=== PATIENT | male | born 1960 | race African-American/Black ===

== ENCOUNTER 2016-03-28 09:55 | Outpatient (CLI) | payer MEDICARE | END 2016-03-28 09:56 | LOC: LAB 09:55 | PROVIDERS: ATTEND Internal Medicine Cardiovascular Disease | DX: I63.9 Cerebral infarction, unspecified (principal); Z79.01 Long term (current) use of anticoagulants | CPT/HCPCS: 36415; 85610 ==

== ENCOUNTER 2016-05-02 09:24 | Outpatient (CLI) | payer MEDICARE | END 2016-05-02 09:25 | LOC: LAB 09:24 | PROVIDERS: ATTEND Internal Medicine Cardiovascular Disease | DX: Z51.81 Encounter for therapeutic drug level monitoring (principal); I63.9 Cerebral infarction, unspecified; Z79.01 Long term (current) use of anticoagulants | CPT/HCPCS: 36415; 85610 ==

== ENCOUNTER 2016-06-06 08:16 | Outpatient (CLI) | payer MEDICARE | END 2016-06-06 08:17 | LOC: LAB 08:16 | PROVIDERS: ATTEND Internal Medicine Cardiovascular Disease | DX: Z51.81 Encounter for therapeutic drug level monitoring (principal); Z79.01 Long term (current) use of anticoagulants; I63.9 Cerebral infarction, unspecified | CPT/HCPCS: 36415; 85610 ==

== ENCOUNTER 2016-07-11 09:36 | Outpatient (CLI) | payer MEDICARE | END 2016-07-11 09:37 | LOC: LAB 09:36 | PROVIDERS: ATTEND Internal Medicine Cardiovascular Disease | DX: Z51.81 Encounter for therapeutic drug level monitoring (principal); Z79.01 Long term (current) use of anticoagulants; I63.9 Cerebral infarction, unspecified | CPT/HCPCS: 36415; 85610 ==

== ENCOUNTER 2016-08-01 07:31 | Outpatient (CLI) | payer MEDICARE | END 2016-08-01 07:32 | LOC: LAB 07:31 | PROVIDERS: ATTEND Internal Medicine Cardiovascular Disease | DX: I63.9 Cerebral infarction, unspecified (principal); Z79.01 Long term (current) use of anticoagulants | CPT/HCPCS: 36415; 85610 ==

== ENCOUNTER 2016-09-05 09:17 | Outpatient (CLI) | payer MEDICARE | END 2016-09-05 13:07 | LOC: LAB 09:17 | PROVIDERS: ATTEND Internal Medicine Cardiovascular Disease | DX: I63.9 Cerebral infarction, unspecified (principal) | CPT/HCPCS: 36415; 85610 ==

== ENCOUNTER 2016-10-10 07:52 | Outpatient (CLI) | payer MEDICARE | END 2016-10-10 08:00 | LOC: LAB 07:52 | PROVIDERS: ATTEND Internal Medicine Cardiovascular Disease | DX: I63.9 Cerebral infarction, unspecified (principal) | CPT/HCPCS: 36415; 85610 ==

== ENCOUNTER 2016-10-31 07:57 | Outpatient (CLI) | payer MEDICARE | END 2016-10-31 09:00 | LOC: LAB 07:57 | PROVIDERS: ATTEND Internal Medicine Cardiovascular Disease | DX: I63.9 Cerebral infarction, unspecified (principal) | CPT/HCPCS: 36415; 85610 ==

== ENCOUNTER 2016-11-16 07:47 | Outpatient (CLI) | payer MEDICARE, OTHER | END 2016-11-16 07:50 | LOC: LAB 07:47 | PROVIDERS: ATTEND Internal Medicine Cardiovascular Disease | DX: I63.9 Cerebral infarction, unspecified (principal) | CPT/HCPCS: 36415; 85610 ==

== ENCOUNTER 2016-11-24 08:04 | Outpatient (CLI) | payer MEDICARE, OTHER | END 2016-11-24 08:05 | LOC: LAB 08:04 | PROVIDERS: ATTEND Internal Medicine Cardiovascular Disease | DX: I63.8 Other cerebral infarction (principal) | CPT/HCPCS: 36415; 85610 ==

== ENCOUNTER 2016-12-22 08:11 | Outpatient (CLI) | payer MEDICARE, OTHER | END 2016-12-22 08:12 | LOC: LAB 08:11 | PROVIDERS: ATTEND Internal Medicine Cardiovascular Disease | DX: I63.9 Cerebral infarction, unspecified (principal) | CPT/HCPCS: 36415; 85610 ==

== ENCOUNTER 2017-02-02 09:59 | Outpatient (CLI) | payer MEDICARE, OTHER | END 2017-02-02 11:27 | LOC: LAB 09:59 | PROVIDERS: ATTEND Internal Medicine Cardiovascular Disease | DX: I63.9 Cerebral infarction, unspecified (principal) | CPT/HCPCS: 36415; 85610 ==

== ENCOUNTER 2017-02-16 07:40 | Outpatient (CLI) | payer MEDICARE | END 2017-02-16 07:42 | LOC: LAB 07:40 | PROVIDERS: ATTEND Internal Medicine Cardiovascular Disease | DX: I63.9 Cerebral infarction, unspecified (principal) | CPT/HCPCS: 36415; 85610 ==

== ENCOUNTER 2017-02-20 10:33 | Outpatient (CLI) | payer MEDICARE, OTHER ==
[2017-02-20 10:52] LABS: APPEARANCE,URINE Clear (CLEAR); COLOR,URINE Yellow (YELLOW); OCCULT BLOOD,URINE 1+ (NEGATIVE); PH URINE 5.5 (5.0 - 8.0); UROBILINOGEN URINE 0.2 Eu (0.2-1.0)
[2017-02-20 10:58] LABS: AMORPHOUS SEDIMENT,UR FEW (NEGATIVE)
[2017-02-20 11:30] LABS: eGFR (African) > 60; eGFR (Non-African) > 60
== END 2017-02-20 10:34 ==
LOC: LAB 10:33
PROVIDERS: ATTEND Family Medicine
DX: E11.9 Type 2 diabetes mellitus without complications (principal); R10.2 Pelvic and perineal pain
CPT/HCPCS: 36415; 80053; 80061; 81002; 83036

== ENCOUNTER 2017-02-27 10:35 | Outpatient (CLI) | payer MEDICARE, OTHER ==
--- NOTE | 2017-02-27 13:31 | Diagnostic Imaging Report ---
SALOME CISSE [facility] [address] [facility] [address] 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 History: Left sided pelvic discomfort Comparison exams: None available for direct review Technique: CT pelvis without contrast - unable to obtain IV access. Findings: No evidence for pelvic sidewall mass or inflammatory process. Visualized bowel without abnormal dilation. Stool within the large bowel limiting sensitivity. Few sigmoid diverticula. Hyperdensity involving the posterior margin of the bladder. Osseous cortical margins appear to be intact. Lower lumbar degenerative changes. Mild hip acetabular spurring. No evidence for inguinal hernia or other soft tissue abnormality. Impression: Region of hyper intensity involving the posterior margin of the bladder: not fully evaluated on a noncontrast examination. Recommend dedicated imaging to further evaluate. Sigmoid diverticulosis. No evidence for acute diverticulitis. No acute inflammatory process. Osseous degenerative changes. No evidence for fracture. Electronically signed on Feb 27, 2017 11:41:04 AM FRUIT GRADING SUPERVISOR by: Mario ROUSE
== END 2017-02-27 10:45 ==
LOC: RAD 10:35
PROVIDERS: ATTEND Family Medicine
DX: R10.2 Pelvic and perineal pain (principal)
CPT/HCPCS: 72192

== ENCOUNTER 2017-03-23 07:13 | Outpatient (CLI) | payer MEDICARE, OTHER | END 2017-03-23 07:14 | LOC: LAB 07:13 | PROVIDERS: ATTEND Internal Medicine Cardiovascular Disease | DX: Z79.01 Long term (current) use of anticoagulants (principal); I63.9 Cerebral infarction, unspecified | CPT/HCPCS: 36415; 85610 ==

== ENCOUNTER 2017-03-29 10:56 | Outpatient (CLI) | payer MEDICARE, OTHER | END 2017-03-29 10:58 | LOC: POD 10:56 | PROVIDERS: ATTEND Podiatrist Public Medicine | DX: L84 Corns and callosities (principal); M79.672 Pain in left foot; M76.71 Peroneal tendinitis, right leg; E11.9 Type 2 diabetes mellitus without complications; B35.1 Tinea unguium; L60.0 Ingrowing nail | CPT/HCPCS: 11721; G0463 ==

== ENCOUNTER 2017-03-30 07:20 | Outpatient (CLI) | payer MEDICARE, OTHER | END 2017-03-30 07:21 | LOC: LAB 07:20 | PROVIDERS: ATTEND Internal Medicine Cardiovascular Disease | DX: Z51.81 Encounter for therapeutic drug level monitoring (principal); I63.9 Cerebral infarction, unspecified | CPT/HCPCS: 36415; 85610 ==

== ENCOUNTER 2017-04-17 07:12 | Outpatient (CLI) | payer MEDICARE, OTHER | END 2017-04-17 07:14 | LOC: LAB 07:12 | PROVIDERS: ATTEND Internal Medicine Cardiovascular Disease | DX: I63.9 Cerebral infarction, unspecified (principal); Z79.899 Other long term (current) drug therapy | CPT/HCPCS: 36415; 85610 ==

== ENCOUNTER 2017-05-01 12:28 | Outpatient (CLI) | payer MEDICARE, OTHER | END 2017-05-01 12:30 | LOC: LAB 12:28 | PROVIDERS: ATTEND Internal Medicine Cardiovascular Disease | DX: I63.9 Cerebral infarction, unspecified (principal); Z79.01 Long term (current) use of anticoagulants | CPT/HCPCS: 36415; 85610 ==

== ENCOUNTER 2017-05-29 07:21 | Outpatient (CLI) | payer MEDICARE, OTHER | END 2017-05-29 07:30 | LOC: LAB 07:21 | PROVIDERS: ATTEND Internal Medicine Cardiovascular Disease | DX: I63.9 Cerebral infarction, unspecified (principal); Z79.899 Other long term (current) drug therapy | CPT/HCPCS: 36415; 85610 ==

== ENCOUNTER 2017-05-31 10:48 | Outpatient (CLI) | payer MEDICARE, OTHER | END 2017-05-31 11:00 | LOC: POD 10:48 | PROVIDERS: ATTEND Podiatrist Public Medicine | DX: B35.1 Tinea unguium (principal); E11.9 Type 2 diabetes mellitus without complications; L84 Corns and callosities; L60.0 Ingrowing nail; M79.671 Pain in right foot; M79.672 Pain in left foot | CPT/HCPCS: 11721; G0463 ==

== ENCOUNTER 2017-07-03 07:41 | Outpatient (CLI) | payer MEDICARE, OTHER | END 2017-07-03 07:42 | LOC: LAB 07:41 | PROVIDERS: ATTEND Internal Medicine Cardiovascular Disease | DX: I63.9 Cerebral infarction, unspecified (principal); I51.3 Intracardiac thrombosis, not elsewhere classified; Z79.899 Other long term (current) drug therapy | CPT/HCPCS: 36415; 85610 ==

== ENCOUNTER 2017-07-26 15:58 | Outpatient (CLI) | payer MEDICARE, OTHER | END 2017-07-26 16:00 | LOC: LAB 15:58 | PROVIDERS: ATTEND Family Medicine | DX: E11.9 Type 2 diabetes mellitus without complications (principal) | CPT/HCPCS: 36415; 83036 ==

== ENCOUNTER 2017-08-07 07:17 | Outpatient (CLI) | payer MEDICARE, OTHER | END 2017-08-07 12:16 | LOC: LAB 07:17 | PROVIDERS: ATTEND Internal Medicine Cardiovascular Disease | DX: I42.0 Dilated cardiomyopathy (principal); Z86.73 Personal history of transient ischemic attack (TIA), and cerebral infarction without residual deficits; Z79.899 Other long term (current) drug therapy | CPT/HCPCS: 36415; 85610 ==

== ENCOUNTER 2017-09-11 08:22 | Outpatient (CLI) | payer MEDICARE, OTHER | END 2017-09-11 08:23 | LOC: LAB 08:22 | PROVIDERS: ATTEND Internal Medicine Cardiovascular Disease | DX: I42.0 Dilated cardiomyopathy (principal); Z86.79 Personal history of other diseases of the circulatory system; Z79.899 Other long term (current) drug therapy | CPT/HCPCS: 36415; 85610 ==

== ENCOUNTER 2017-10-04 07:08 | Outpatient (CLI) | payer MEDICARE, OTHER | END 2017-10-04 13:35 | LOC: LAB 07:08 | PROVIDERS: ATTEND Internal Medicine Cardiovascular Disease | DX: I42.0 Dilated cardiomyopathy (principal); Z86.73 Personal history of transient ischemic attack (TIA), and cerebral infarction without residual deficits; Z79.899 Other long term (current) drug therapy | CPT/HCPCS: 36415; 85610 ==

== ENCOUNTER 2017-10-24 14:33 | Outpatient (CLI) | payer MEDICARE | END 2017-10-24 14:35 | LOC: LAB 14:33 | PROVIDERS: ATTEND Internal Medicine Cardiovascular Disease | DX: I42.0 Dilated cardiomyopathy (principal); Z86.73 Personal history of transient ischemic attack (TIA), and cerebral infarction without residual deficits; Z79.899 Other long term (current) drug therapy | CPT/HCPCS: 36415; 85610 ==

== ENCOUNTER 2017-10-25 09:33 | Outpatient (CLI) | payer MEDICARE | END 2017-10-25 09:34 | LOC: POD 09:33 | PROVIDERS: ATTEND Podiatrist Public Medicine | DX: B35.1 Tinea unguium (principal); E11.9 Type 2 diabetes mellitus without complications; L84 Corns and callosities; L60.0 Ingrowing nail; M79.671 Pain in right foot; M79.672 Pain in left foot | CPT/HCPCS: 11721; G0463 ==

== ENCOUNTER 2017-11-22 07:14 | Outpatient (CLI) | payer MEDICARE | END 2017-11-22 07:15 | LOC: LAB 07:14 | PROVIDERS: ATTEND Internal Medicine Cardiovascular Disease | DX: I42.0 Dilated cardiomyopathy (principal); Z86.73 Personal history of transient ischemic attack (TIA), and cerebral infarction without residual deficits; Z79.899 Other long term (current) drug therapy | CPT/HCPCS: 36415; 85610 ==

== ENCOUNTER 2017-12-14 07:19 | Outpatient (CLI) | payer MEDICARE | END 2017-12-14 07:20 | LOC: LAB 07:19 | PROVIDERS: ATTEND Internal Medicine Cardiovascular Disease | DX: I42.0 Dilated cardiomyopathy (principal); Z86.73 Personal history of transient ischemic attack (TIA), and cerebral infarction without residual deficits; Z79.899 Other long term (current) drug therapy | CPT/HCPCS: 36415; 85610 ==

== ENCOUNTER 2018-01-18 07:16 | Outpatient (CLI) | payer MEDICARE, OTHER | END 2018-01-18 07:17 | LOC: LAB 07:16 | PROVIDERS: ATTEND Internal Medicine Cardiovascular Disease | DX: I42.0 Dilated cardiomyopathy (principal); Z86.73 Personal history of transient ischemic attack (TIA), and cerebral infarction without residual deficits; Z79.899 Other long term (current) drug therapy | CPT/HCPCS: 36415; 85610 ==

== ENCOUNTER 2018-02-22 07:15 | Outpatient (CLI) | payer MEDICARE, OTHER | END 2018-02-22 07:16 | LOC: LAB 07:15 | PROVIDERS: ATTEND Internal Medicine Cardiovascular Disease | DX: I42.0 Dilated cardiomyopathy (principal); Z86.73 Personal history of transient ischemic attack (TIA), and cerebral infarction without residual deficits; Z79.899 Other long term (current) drug therapy | CPT/HCPCS: 36415; 85610 ==

== ENCOUNTER 2018-03-15 07:06 | Outpatient (CLI) | payer MEDICARE, OTHER | END 2018-03-15 07:07 | LOC: LAB 07:06 | PROVIDERS: ATTEND Internal Medicine Cardiovascular Disease | DX: I42.0 Dilated cardiomyopathy (principal); Z86.73 Personal history of transient ischemic attack (TIA), and cerebral infarction without residual deficits; Z79.899 Other long term (current) drug therapy | CPT/HCPCS: 36415; 85610 ==

== ENCOUNTER 2018-04-18 07:02 | Outpatient (CLI) | payer MEDICARE, OTHER | END 2018-04-18 07:10 | LOC: LAB 07:02 | PROVIDERS: ATTEND Internal Medicine Cardiovascular Disease | DX: I42.0 Dilated cardiomyopathy (principal); Z86.73 Personal history of transient ischemic attack (TIA), and cerebral infarction without residual deficits; Z79.899 Other long term (current) drug therapy | CPT/HCPCS: 36415; 85610 ==

== ENCOUNTER 2018-05-14 14:42 | Outpatient (CLI) | payer MEDICARE, MEDICAID ==
[2018-05-14 15:15] LABS: eGFR (Non-African) > 60
== END 2018-05-14 14:44 ==
LOC: LAB 14:42
PROVIDERS: ATTEND Family Medicine
DX: E11.9 Type 2 diabetes mellitus without complications (principal)
CPT/HCPCS: 36415; 80053; 80061; 82043; 83036

== ENCOUNTER 2018-05-23 07:10 | Outpatient (CLI) | payer MEDICARE, MEDICAID | END 2018-05-23 07:12 | LOC: LAB 07:10 | PROVIDERS: ATTEND Internal Medicine Cardiovascular Disease | DX: I42.0 Dilated cardiomyopathy (principal); Z86.73 Personal history of transient ischemic attack (TIA), and cerebral infarction without residual deficits; Z79.899 Other long term (current) drug therapy | CPT/HCPCS: 36415; 85610 ==

== ENCOUNTER 2018-06-27 07:11 | Outpatient (CLI) | payer MEDICARE, MEDICAID | END 2018-06-27 10:45 | LOC: LAB 07:11 | PROVIDERS: ATTEND Internal Medicine Cardiovascular Disease | DX: I42.0 Dilated cardiomyopathy (principal); Z79.899 Other long term (current) drug therapy; Z86.73 Personal history of transient ischemic attack (TIA), and cerebral infarction without residual deficits | CPT/HCPCS: 36415; 85610 ==

== ENCOUNTER 2018-08-01 07:13 | Outpatient (CLI) | payer MEDICARE, MEDICAID | END 2018-08-01 07:14 | LOC: LAB 07:13 | PROVIDERS: ATTEND Internal Medicine Cardiovascular Disease | DX: Z79.01 Long term (current) use of anticoagulants (principal) | CPT/HCPCS: 36415; 85610 ==

== ENCOUNTER 2018-09-05 07:11 | Outpatient (CLI) | payer MEDICARE, MEDICAID | END 2018-09-05 07:16 | disposition home or self-care (01) | LOC: LAB 07:11 | PROVIDERS: ATTEND Internal Medicine Cardiovascular Disease | DX: Z79.01 Long term (current) use of anticoagulants (principal); Z51.81 Encounter for therapeutic drug level monitoring | CPT/HCPCS: 36415; 85610 ==

== ENCOUNTER 2018-09-25 22:00 | Inpatient (IN) | payer MEDICARE, OTHER ==
--- NOTE | 2018-09-25 22:34 | ED Physician Documentation ---
General Adult - HISTORIAN Historian: patient - HPI Chief Complaint: General Adult Additional Information: Patient is a 58-year-old male that presents to the ER with c/o fever, chills, decrease appetite and urinary sx's that started approx. 3 days ago - he was started on antibiotic for a UTI but has not started it yet d/t a pharmacy issue with his warfarin- patient arrives to ER with family POV with c/o feeling weak. He states that his mouth is dry and he smells of urine- he is not a very good historian but was able to give a small history. He denies any n/v/d. Onset: days ago (3-4 days ago) Timing: still present, worse Severity: moderate Modifying Factors: UTI - ROS CONST: fever, weakness, chills EYES/ENT: none CVS/RESP: shortness of breath GI/: denies: vomiting, nausea MS/SKIN/LYMPH: none NEURO/PSYCH: denies: headache, dizziness - PAST HX Past History: A-Fib, CHF, hypertension Other History: CVA (2012 & Heart attack), diabetes Type 2, other (GERD, GOUT) Surgeries/Procedures: other (Cataracts) Immunizations: UTD Allergies/Adverse Reactions: Allergies Allergy/AdvReac Type Severity Reaction Status Date / Time No Known Drug Allergies Allergy Unknown Verified 09/26/18 00:16 Home Medications: Ambulatory Orders Medication Instructions Recorded Warfarin Sodium 5 mg PO MOFR 09/26/18 Warfarin Sodium 7.5 mg PO SUTUWETHSA 09/26/18 - SOCIAL HX Smoking History: greater than 1 pack/day (quit 3 weeks ago) Alcohol Use: none Drug Use: none - FAMILY HX Family History: No - REVIEWED ASSESSMENTS Nursing Assessment Reviewed: Yes Vitals Reviewed: Yes Progress - Progress Progress: 00:00 Contacted [place] for Transfer- they are on bed hold- discussed with patient- he is feeling better; we will give another liter of fluid and if heart rate decreases below 120 and systolic blood pressure greater than 100 we will admit for urosepsis. Patients lungs are clear, he denies shortness of breath or chest pain- no edema. Patient would really like to be admitted here. 01:05 patient is feeling better- temp is down to 98.7, heart rate is down from 155 to 128, blood pressure is >90 systolic- we are watching patient closely for signs of failure with IVFs going- patient denies any shortness of breath or chest pain. ED Results Lab/Radiology - Orders Orders: ED Orders Category Date Time Status Place IV Lock 1T Care 09/25/18 22:33 Ordered BLOOD CULTURE Stat Lab 09/25/18 Ordered CBC/PLATELET/DIFF Routine Lab 09/25/18 22:32 Ordered CMP Routine Lab 09/25/18 22:32 Ordered LACTATE Stat Lab 09/25/18 Ordered NTBNP Stat Lab 09/25/18 Ordered PT-INR Routine Lab 09/25/18 Ordered URINALYSIS Routine Lab 09/25/18 22:32 Ordered EKG WITH COMPARISON Stat Ther 09/25/18 Ordered General Adult Physical Exam - PHYSICAL EXAM GENERAL APPEARANCE: mild distress EENT: eye inspection normal, ENT inspection normal, [place], dry mucous membranes NECK: supple. No: carotid bruit RESPIRATORY: chest non-tender, breath sounds normal CVS: tachycardia ABDOMEN: soft, normal bowel sounds BACK: normal inspection SKIN: warm/dry, pallor EXTREMITIES: non-tender, normal range of motion NEURO: oriented X3, CN's nml as tested, motor nml, sensation nml, mood/affect nml, cognition normal Discharge Clincal Impression: Sepsis due to urinary tract infection, Acute renal failure (ARF) Condition: Stable Disposition: ADMITTED INPATIENT Decision to Admit: NO Decision Time: 01:28
[2018-09-25] MEDS ORDERED: 0.9 % SODIUM CHLORIDE 500 ML IV ONE (22:45)
[2018-09-25] MEDS ORDERED: cefTRIAXone SODIUM 2 GM in 0.9 % SODIUM CHLORIDE 100 ML IV ONE (23:05)
[2018-09-25] MEDS ORDERED: cefTRIAXone SODIUM 1 GM INJ ONE (23:08)
[2018-09-25] MEDS ORDERED: 0.9 % SODIUM CHLORIDE 250 ML IV ONE (23:08)
[2018-09-25] MEDS ORDERED: 0.9 % SODIUM CHLORIDE 1,000 ML IV ONE (23:52)
[2018-09-26] MEDS ORDERED: IPRATROPIUM/ALBUTEROL SULFATE 3 ML AMPUL.NEB NEB PRN (01:17)
[2018-09-26] MEDS: 0.9 % SODIUM CHLORIDE 1,000 ML IV SCH ×3 (01:50→23:47)
[2018-09-26 02:05] VITALS: BMI 38.0
--- NOTE | 2018-09-26 04:57 | Diagnostic Imaging Report ---
FREDY VELAZQUEZ ED [facility] [address] [facility].[address] [address] Report Submission Date: Sep 25, 2018 11:36:12 PM CDT Patient Study Name: LEO ERWIN Date: Sep 25, 2018 11:10:46 PM CDT Modality Type: DX Gender: M Description: CHEST 2VIEW : 60 Institution: [facility] Physician: FREDY VELAZQUEZ ED PA and lateral chest Clinical history: Shortness of breath. Findings: Examination the chest in PA and lateral views no prior films for comparison demonstrates discoid changes in the right base. Cardiovascular and mediastinal silhouettes are within normal limits. Monitor leads superimpose the chest. Impression: 1. Discoid changes in the right base. 2. No active disease. Electronically signed on Sep 25, 2018 11:36:12 PM CDT by: Serg ROUSE
[2018-09-26 06:50] LABS: BASOPHILS % 0.8 % (0.0-1.5); NEUTROPHILS # 7.4 # k/uL (1.4-7.7)
[2018-09-26 06:51] LABS: NEUTROPHILS # 9.9 # k/uL (1.4-7.7); eGFR (Non-African) 52
--- NOTE | 2018-09-26 06:55 | History and Physical Report ---
History of Present Illnes - History of Present Illness Reason for Visit: Urosepsis History of Present Illness: Patient is a 58-year-old male that presents to the ER with c/o fever, chills, decrease appetite and urinary sx's that started approx. 3 days ago - he was started on antibiotic for a UTI but has not started it yet d/t a pharmacy issue with his warfarin- patient arrives to ER with family POV with c/o feeling weak. He states that his mouth is dry and he smells of urine- he is not a very good historian but was able to give a small history. He denies any n/v/d. 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) Gastrointestinal: GERD Rheumatologic: Gout Endocrine: Diabetes (DMII) - Past Surgical History Past Surgical History: Cataract Removal - Past Family History Mother Family History: Hyperlipidemia, Hypertension Father Family History: CAD, Hyperlipidemia, Hypertension - Past Social History Smoke: Quit (3 WKS AGO) Alcohol: Rare Drugs: None Lives: With Family Domestic Violence: Negative - Health Maintenance Health Maintenance: Cholesterol, Other (INR) Influenza Vaccine: Current for this Influenza Season Pneumonia Vaccine: Yes Resuscitation Status: Resusciation Status Resuscitation Status Full Code - Unable to Obtain History Unable to Obtain: No Review of Systems - Review of Systems Constitutional: Fever, Chills, Weakness Eyes: negative: pain ENT: negative: Throat Pain Respiratory: SOB with Excertion Cardiovascular: negative: Chest Pain, Light Headedness Gastrointestinal: Nausea. negative: Vomiting Genitourinary: Dysuria, Incontinence Musculoskeletal: negative: Back Pain Skin: negative: Rash Neurological: Weakness - Medications/Allergies Allergies/Adverse Reactions: Allergies Allergy/AdvReac Type Severity Reaction Status Date / Time No Known Drug Allergies Allergy Unknown Verified 09/26/18 00:16 Home Medications: Home Medications Warfarin Sodium 5 mg PO MOFR 09/26/18 Warfarin Sodium 7.5 mg PO SUTUWETHSA 09/26/18 Current Inpatient Medications: Current Inpatient Medications Albuterol/Ipratropium (Duoneb) 3 ml NEB Q4 PRN PRN Reason: Wheezing Carvedilol (Coreg) 25 mg PO BID HILDA Famotidine (Pepcid) 20 mg PO BID HILDA Furosemide (Lasix) 40 mg PO SEE.INSTRUCTIONS HILDA Glipizide (Glucotrol) [place] [id number] [facility] Ceftriaxone Sodium 1 gm/ (Sodium Chloride) 50 mls @ 100 mls/hr IV Q8H [facility] Sodium Chloride (Normal Saline) 1,000 mls @ 80 mls/hr IV Q10H [facility] Last Admin: 09/26/18 01:50 Dose: 80 mls/hr Insulin Human Regular (Novolin R) 0 unit SQ CHEMQID [facility]; Protocol Lisinopril (Prinivil) 2.5 mg PO DAILY [facility] Metformin HCl (Glucophage) 1,[address] [place] [id number] [facility] Miscellaneous (Chem Sticks) 1 each CHEMQID [facility] Pioglitazone HCl (Actos) 30 mg PO DAILY [facility] Spironolactone (Aldactone) 25 mg PO DAILY [facility] Warfarin Sodium (Coumadin) 5 mg PO MOFR [facility] Warfarin Sodium (Coumadin) 7.5 mg PO [id number] [facility] Exam - Exam Vital Signs: Vital Signs (72 hours) 09/25/18 09/26/18 09/26/18 22:30 01:17 01:28 Temperature 101.9 F H 98.7 F Pulse Rate 133 H Pulse Rate [ 155 H 127 H Left Pulse ox] Pulse Rate [ Left] Respiratory 20 18 Rate Blood Pressure 85/50 100/61 [Left Arm] O2 Sat by Pulse 97 97 Oximetry 09/26/18 09/26/18 09/26/18 01:31 01:45 02:00 Temperature 97.0 F L 97.0 F L 97.0 F L Pulse Rate Pulse Rate [ Left Pulse ox] Pulse Rate [ 133 H 133 H 133 H Left] Respiratory 20 20 20 Rate Blood Pressure 120/69 120/69 120/69 [Left Arm] O2 Sat by Pulse 97 97 97 Oximetry 09/26/18 09/26/18 09/26/18 02:02 05:17 06:00 Temperature 97.0 F L 97.6 F Pulse Rate 121 H Pulse Rate [ Left Pulse ox] Pulse Rate [ 133 H 101 H Left] Respiratory 20 20 Rate Blood Pressure 120/69 102/67 [Left Arm] O2 Sat by Pulse 97 97 Oximetry General: Alert, Oriented to Person, Oriented to Place, Oriented to Time, Cooperative, Mild distress, Obese HEENT: Atraumatic, PERRLA, Mouth Mucous membr. moist/[place], Nose Mucous membr. moist/[place] Neck: Normal Range of Motion Carotids: NO BRUIT Lungs: Clear to auscultation, Normal air movement, Speaks full Sentences Cardiovascular: Regular rate, Normal S1, Normal S2, Other (POCKET TELEMETRY 90S) Peripheral Edema: NONE Peripheral Pulses: 2+ Abdomen: Normal bowel sounds, Soft, No tenderness Integumentary: Normal, [place], Warm, Dry Extremities: No edema, Normal pulses, No tenderness/swelling Neurological: Normal gait, Normal speech, Strength Equal Bilat, Sensation intact Psych/Mental Status: Mental status NL, Mood NL, Appropriate Affect, Intact Judgment - Laboratory Results Laboratory Results: Laboratory Results 09/25/18 09/25/18 09/25/18 23:05 23:05 23:05 WBC 10.10 RBC 3.79 L Hgb 12.4 Hct 37.2 MCV 98.0 MCH 32.7 MCHC 33.3 RDW 14.1 Plt Count 144 Neut % (Auto) 73.1 Lymph % (Auto) 6.2 L [place] % (Auto) 19.0 H Eos % (Auto) 0.9 Baso % (Auto) 0.8 Neut # (Auto) 7.4 Lymph # (Auto) 0.6 [place] # (Auto) 1.9 H Eos # (Auto) 0.1 Baso # (Auto) 0.1 PT 33.5 H INR 3.26 H Sodium 133 L Potassium 4.5 Chloride 96 L Carbon Dioxide 24 BUN 34 H Creatinine 1.55 H Estimated Creat Clear 83 Est GFR ( Amer) 60 Est GFR (Non-Af Amer) 49 L Glucose 276 H Lactate 3.3 H Calcium 7.8 L Total Bilirubin 1.3 AST 110 H ALT 80 H Alkaline Phosphatase 244 H NT-Pro-B Natriuret Pep Total Protein 7.0 Albumin 3.7 09/25/18 09/26/18 09/26/18 23:05 05:38 05:38 WBC 13.90 H RBC 3.33 L Hgb 10.7 L Hct 32.6 L MCV 98.0 MCH 32.2 MCHC 33.0 RDW 13.6 Plt Count 120 L Neut % (Auto) 71.7 Lymph % (Auto) 10.1 L [place] % (Auto) 16.2 H Eos % (Auto) 1.0 Baso % (Auto) 1.0 Neut # (Auto) 9.9 H Lymph # (Auto) 1.4 [place] # (Auto) 2.2 H Eos # (Auto) 0.1 Baso # (Auto) 0.1 PT INR Sodium 132 L Potassium 4.0 Chloride 100 Carbon Dioxide 25 BUN 34 H Creatinine 1.47 H Estimated Creat Clear 87 Est GFR ( Amer) > 60 Est GFR (Non-Af Amer) 52 L Glucose 259 H Lactate Calcium 7.5 L Total Bilirubin 0.5 AST 66 H ALT 63 Alkaline Phosphatase 170 H NT-Pro-B Natriuret Pep 2920.0 H Total Protein 6.1 L Albumin 3.1 L Assessment/Plan - Assessment/Plan (1) Acute renal failure (ARF) Status: Acute Current Visit: Yes Assessment: BUN/CR 34.1/1.47; PATIENT IS VOIDING; CONSUMING ADEQUATE ORAL INTAKE Plan: WILL CONTINUE IV HYDRATION AT 80 CC/HR DUE TO CHF AND CONTINUE ORAL LASIX (2) Sepsis due to urinary tract infection Status: Acute Current Visit: Yes Assessment: PATIENT IS AFEBRILE; FEELING BETTER Plan: WILL CONTINUE WITH IV ROCEPHIN EVERY 8 HOURS; IVF AT 80CC/HR, WILL CONTINUE TO MONITOR LABS AND REPEAT UA (3) Type 2 diabetes mellitus Status: Acute Current Visit: Yes Qualifiers: Diabetes mellitus complication status: with hyperglycemia Assessment: BLOOD SUGARS > 200 Plan: WILL CONTINUE WITH SLIDING SCALE INSULIN; DIET EDUCATION (4) CHF (congestive heart failure) Status: Acute Current Visit: Yes Assessment: LCTA, CXR NORMAL Plan: WILL CONTINUE ON ORAL LASIX (5) Hypertension Status: Acute Current Visit: Yes Qualifiers: Hypertension type: essential hypertension Qualified Code(s): I10 - Essential (primary) hypertension Assessment: BLOOD PRESSURES ARE STABLE (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
[2018-09-26 07:06] LABS: APPEARANCE,URINE CLEAR (CLEAR); COLOR,URINE YELLOW (YELLOW); OCCULT BLOOD,URINE 2+ (NEGATIVE); PH URINE 5.5 (5.0 - 8.0); UROBILINOGEN URINE 0.2 Eu (0.2-1.0)
[2018-09-26] MEDS ORDERED: 0.9 % SODIUM CHLORIDE 50 ML IV ONE (07:59)
[2018-09-26] MEDS ORDERED: cefTRIAXone SODIUM 1 GM INJ ONE (08:00)
[2018-09-26] MEDS: metFORMIN HCl 500 MG TABLET PO SCH ×2 (08:12→17:29)
[2018-09-26] MEDS: PIOGLITAZONE HCL 30 MG TABLET PO SCH (08:12)
[2018-09-26] MEDS: CARVEDILOL 12.5 MG TABLET PO SCH ×2 (08:13→20:58)
[2018-09-26] MEDS: SPIRONOLACTONE 25 MG TABLET PO SCH (08:13)
[2018-09-26] MEDS: FUROSEMIDE 40 MG TABLET PO SCH (08:13)
[2018-09-26] MEDS: glipiZIDE 5 MG TABLET PO SCH ×2 (08:13→17:29)
[2018-09-26] MEDS: FAMOTIDINE 20 MG TABLET PO SCH ×2 (08:13→20:59)
[2018-09-26] MEDS: LISINOPRIL 2.5 MG TABLET PO SCH (08:17)
[2018-09-26] MEDS: cefTRIAXone SODIUM 1 GM in 0.9 % SODIUM CHLORIDE 50 ML IV SCH ×2 (08:18→17:31)
[2018-09-26] MEDS: INSULIN REGULAR, HUMAN 100 UNIT/ML 10ML VIAL SQ SCH ×4 (08:23→20:59)
[2018-09-26] MEDS: WARFARIN SODIUM 2.5 MG TABLET PO SCH (17:29)
[2018-09-27] MEDS: cefTRIAXone SODIUM 1 GM in 0.9 % SODIUM CHLORIDE 50 ML IV SCH ×3 (01:04→18:11)
[2018-09-27 06:46] LABS: eGFR (Non-African) > 60
[2018-09-27 07:06] LABS: APPEARANCE,URINE CLEAR (CLEAR); COLOR,URINE YELLOW (YELLOW); OCCULT BLOOD,URINE 2+ (NEGATIVE); PH URINE 5.5 (5.0 - 8.0); UROBILINOGEN URINE 0.2 Eu (0.2-1.0)
[2018-09-27 08:23] LABS: SEGMENTED NEUTROPHILS % 63 % (39-79)
[2018-09-27] MEDS: FUROSEMIDE 40 MG TABLET PO SCH (08:25)
[2018-09-27] MEDS: SPIRONOLACTONE 25 MG TABLET PO SCH (08:25)
[2018-09-27] MEDS: PIOGLITAZONE HCL 30 MG TABLET PO SCH (08:25)
[2018-09-27] MEDS: LISINOPRIL 2.5 MG TABLET PO SCH (08:26)
[2018-09-27] MEDS: CARVEDILOL 12.5 MG TABLET PO SCH ×2 (08:26→22:27)
[2018-09-27] MEDS: FAMOTIDINE 20 MG TABLET PO SCH ×2 (08:26→22:27)
[2018-09-27] MEDS: glipiZIDE 5 MG TABLET PO SCH ×2 (08:26→18:12)
[2018-09-27] MEDS: INSULIN REGULAR, HUMAN 100 UNIT/ML 10ML VIAL SQ SCH ×4 (08:27→23:45)
[2018-09-27] MEDS: metFORMIN HCl 500 MG TABLET PO SCH ×2 (08:27→18:17)
--- NOTE | 2018-09-27 09:01 | Inpatient Progress Note ---
Subjective - Required Recertification Statement I anticipate X number of days because-include discharge plan: 1 - Review of Systems Events since last encounter: Patient has been receiving IVF at a rate of 80cc/hr due to CHF, he is feeling much better- treatment with IV rocephin; he has been ambulating and using incentive spirometer. He is receiving sliding scale insulin and blood sugars have greatly improved. Will continue with IV antibiotics and repeat labs in the a.m. Possible discharge in the a.m. General: Denies: Chills HEENT: Denies: Head Aches, Dysphasia Pulmonary: Denies: Dyspnea, Cough Cardiovascular: Denies: Chest Pain, Edema, Light Headedness Gastrointestinal: Denies: Nausea, Vomiting, Abdominal Pain Genitourinary: Denies: Dysuria Musculoskeletal: Denies: Back Pain Neurological: Denies: Weakness Objective - Exam Vitals and I&O: Vital Signs Temp 96.7 F L 09/27/18 08:26 Pulse 86 09/27/18 08:26 Resp 18 09/27/18 08:26 BP 102/62 09/27/18 08:26 Pulse Ox 100 09/27/18 08:26 Intake & Output 09/26/18 09/26/18 09/27/18 11:59 23:59 11:59 Intake Total 1120 360 Output Total 800 600 Balance 320 -240 Weight 113.398 kg Intake: Oral 1120 360 Output: Urine 800 600 Other: Voiding Method Toilet Toilet # Voids 1 2 # Bowel Movements 0 2 0 General: Alert, Oriented to Person, Oriented to Place, Oriented to Time, Cooperative, No acute distress, Obese HEENT: Atraumatic, PERRLA, Mouth Mucous membr. moist/[place], Nose Mucous membr. moist/[place] Neck: Supple Lungs: Clear to auscultation, Normal air movement, Speaks full Sentences Cardiovascular: Regular rate, Normal S1, Normal S2 Abdomen: Normal bowel sounds, Soft, No tenderness Extremities: No edema, Normal pulses, No tenderness/swelling Skin: Normal, [place], Warm, Dry Neurological: Normal gait, Normal speech, Strength Equal Bilat, Sensation intact Psych/Mental Status: Mental status NL, Mood NL, Appropriate Affect, Intact Judgment - Results Results: Laboratory Results WBC 11.70 K/ul (4.00-12.00) 09/27/18 06:00 RBC 3.35 M/ul (3.90-5.20) L 09/27/18 06:00 Hgb 10.8 g/dL (12.0-18.0) L 09/27/18 06:00 Hct 32.7 % (37.0-53.0) L 09/27/18 06:00 MCV 98.0 fl (80.0-100.0) 09/27/18 06:00 MCH 32.4 pg (28.0-34.0) 09/27/18 06:00 MCHC 33.1 g/dL (30.0-36.0) 09/27/18 06:00 RDW 13.8 % (11.3-14.3) 09/27/18 06:00 Plt Count 143 K/mm3 (130-400) 09/27/18 06:00 Neut % (Auto) 71.7 % (39.0-79.0) 09/26/18 05:38 Lymph % (Auto) 10.1 % (16.0-50.0) L 09/26/18 05:38 [place] % (Auto) 16.2 % (0.0-11.0) H 09/26/18 05:38 Eos % (Auto) 1.0 % (0.0-6.8) 09/26/18 05:38 Baso % (Auto) 1.0 % (0.0-1.5) 09/26/18 05:38 Neut # (Auto) 9.9 # k/uL (1.4-7.7) H 09/26/18 05:38 Lymph # (Auto) 1.4 # k/uL (0.6-4.0) 09/26/18 05:38 [place] # (Auto) 2.2 # k/uL (0.0-0.9) H 09/26/18 05:38 Eos # (Auto) 0.1 # k/uL (0.0-0.6) 09/26/18 05:38 Baso # (Auto) 0.1 # k/uL (0.0-0.5) 09/26/18 05:38 Seg Neutrophils % 63 % (39-79) 09/27/18 06:00 Band Neutrophils % 9 % (0-12) 09/27/18 06:00 Lymphocytes % 11 % (16-50) L 09/27/18 06:00 Monocytes % 16 % (0-11) H 09/27/18 06:00 Metamyelocytes % 3 % (0-0) H 09/27/18 06:00 Myelocytes % 1 % (0-0) H 09/27/18 06:00 Plt Morphology Comment Normal (NORMAL) 09/27/18 06:00 RBC Morph Comment Normal (NORMAL) 09/27/18 06:00 PT 33.5 Seconds (8.8-11.9) H 09/25/18 23:05 INR 3.26 (0.80-1.10) H 09/25/18 23:05 Sodium 134 mmol/L (137-145) L 09/27/18 06:00 Potassium 3.7 mmol/L (3.5-5.1) 09/27/18 06:00 Chloride 105 mmol/L (98-107) 09/27/18 06:00 Carbon Dioxide 22 mmol/L (22-30) 09/27/18 06:00 BUN 37 mg/dL (9-20) H 09/27/18 06:00 Creatinine 1.20 mg/dL (0.66-1.25) 09/27/18 06:00 Estimated Creat Clear 107 09/27/18 06:00 Est GFR ( Amer) > 60 (60-) 09/27/18 06:00 Est GFR (Non-Af Amer) > 60 (60-) 09/27/18 06:00 Glucose 145 mg/dL (74-106) H 09/27/18 06:00 Lactate 3.3 U/L (0.7-2.1) H 09/25/18 23:05 Calcium 7.3 mg/dL (8.4-10.2) L 09/27/18 06:00 Total Bilirubin 0.3 mg/dL (0.2-1.3) 09/27/18 06:00 AST 87 U/L (15-46) H 09/27/18 06:00 ALT 72 U/L (13-69) H 09/27/18 06:00 Alkaline Phosphatase 157 U/L (38-126) H 09/27/18 06:00 NT-Pro-B Natriuret Pep 2920.0 pg/mL (11.1-125.0) H 09/25/18 23:05 Total Protein 6.0 g/dL (6.3-8.2) L 09/27/18 06:00 Albumin 2.9 g/dL (3.5-5.0) L 09/27/18 06:00 Urine Color Yellow (YELLOW) 09/27/18 06:00 Urine Appearance Clear (CLEAR) 09/27/18 06:00 Urine pH 5.5 (5.0 - 8.0) 09/27/18 06:00 Ur Specific [place] <=1.005 (1.010-1.030) L 09/27/18 06:00 Urine Protein Negative mg/dL (NEGATIVE) 09/27/18 06:00 Urine Ketones Negative mg/dL (NEGATIVE) 09/27/18 06:00 Urine Occult Blood 2+ (NEGATIVE) H 09/27/18 06:00 Urine Nitrite Negative (NEGATIVE) 09/27/18 06:00 Urine Bilirubin Negative (NEGATIVE) 09/27/18 06:00 Urine Urobilinogen 0.2 Eu (0.2-1.0) 09/27/18 06:00 Ur Leukocyte Esterase Trace (NEGATIVE) H 09/27/18 06:00 Urine RBC 2-5 (0-2 HPF) H 09/27/18 06:00 Urine WBC 2-5 (0-5 HPF) 09/27/18 06:00 Ur Squamous Epith Cells Few (NEG-FEW) 09/27/18 06:00 Urine Bacteria Few (NEGATIVE) H 09/27/18 06:00 Urine Glucose Negative mg/dL (NEGATIVE) 09/27/18 06:00 Assessment/Plan - Assessment/Plan (1) Acute renal failure (ARF) Status: Acute Current Visit: Yes Assessment: LCTA, MOIST MUCOUS MEMBRANES, STABLE OUTPUT; CREATININE STABLE Plan: WILL STOP IVF (2) CHF (congestive heart failure) Status: Acute Current Visit: Yes Assessment: LCTA, NO SOA, NO EDEMA Plan: CONTINUE ORAL LASIX (3) Hypertension Status: Acute Current Visit: Yes Qualifiers: Hypertension type: essential hypertension Qualified Code(s): I10 - Essential (primary) hypertension Plan: STABLE (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
[2018-09-27] MEDS: 0.9 % SODIUM CHLORIDE 1,000 ML IV SCH (09:44)
[2018-09-27] MEDS: SODIUM CHLORIDE 0.9% 1 NASAL SPRAY BTL IEN SCH ×3 (13:00→22:26)
[2018-09-27] MEDS: WARFARIN SODIUM 2.5 MG TABLET PO SCH (18:12)
[2018-09-28] MEDS: cefTRIAXone SODIUM 1 GM in 0.9 % SODIUM CHLORIDE 50 ML IV SCH ×2 (00:24→08:48)
--- NOTE | 2018-09-28 06:55 | Discharge Summary ---
Discharge Summary - Discharge [facility] Admission Date: 09/25/18 Discharge Date: 09/28/18 Discharge To: Home History of Present Illness: Patient is a 58-year-old male that presented to the ER with c/o fever, chills, decrease appetite and urinary sx's that started approx. 3 days ago - he was started on antibiotic for a UTI but has not started it yet d/t a pharmacy issue with his warfarin- patient arrives to ER with family POV with c/o feeling weak. He states that his mouth is dry and he smells of urine- he is not a very good historian but was able to give a small history. He denies any n/v/d. Condition at Discharge: Stable Home Medications: Ambulatory Orders Medication Instructions Recorded Warfarin Sodium 5 mg PO MOFR 09/26/18 Warfarin Sodium 7.5 mg PO SUTUWETHSA 09/26/18 Cefuroxime Axetil [Ceftin] 250 mg PO BID #20 tablet 09/27/18 Carvedilol [Coreg] 25 mg PO BID #60 tablet 09/28/18 Consultations this Visit: None Procedures this Visit: None Allergies/Adverse Reactions: Allergies Allergy/AdvReac Type Severity Reaction Status Date / Time No Known Drug Allergies Allergy Unknown Verified 09/26/18 00:16 Discharge Summary: Patient is a 58-year-old male that was admitted through the ER with Urosepsis, Acute Renal Failure, and long-term anticoagulant therapy. He is feeling much better today- blood sugars are controlled; he is afebrile, has been up walking in the halls, using incentive spirometry, and has been on a low sodium, no concentrated diet. He has been on sliding scale insulin- discussed the importance of following a diabetic diet to help treat infection. He is drinking plenty of fluids and feels ready to go home. He will continue on oral antibiotics and follow up with PCP next week. 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
[2018-09-28 07:20] LABS: eGFR (Non-African) > 60
[2018-09-28] MEDS: INSULIN REGULAR, HUMAN 100 UNIT/ML 10ML VIAL SQ SCH (08:21)
[2018-09-28 08:47] VITALS: BP 128/59
[2018-09-28] MEDS: FAMOTIDINE 20 MG TABLET PO SCH (08:48)
[2018-09-28] MEDS: PIOGLITAZONE HCL 30 MG TABLET PO SCH (08:48)
[2018-09-28] MEDS: CARVEDILOL 12.5 MG TABLET PO SCH (08:48)
[2018-09-28] MEDS: LISINOPRIL 2.5 MG TABLET PO SCH (08:48)
[2018-09-28] MEDS: FUROSEMIDE 40 MG TABLET PO SCH (08:48)
[2018-09-28] MEDS: SPIRONOLACTONE 25 MG TABLET PO SCH (08:48)
[2018-09-28] MEDS: SODIUM CHLORIDE 0.9% 1 NASAL SPRAY BTL IEN SCH (08:49)
[2018-09-28] MEDS: metFORMIN HCl 500 MG TABLET PO SCH (08:58)
[2018-09-28] MEDS: glipiZIDE 5 MG TABLET PO SCH (08:58)
[2018-09-28] MEDS ORDERED: WARFARIN SODIUM 5 MG TABLET PO SCH (18:00)
== END 2018-09-28 11:20 | disposition home or self-care (01) | DRG 872 ==
LOC: ED 22:00 → SOUTH 09-26 01:15
PROVIDERS: ADMIT Family Medicine; ATTEND Nurse Practitioner Family
DX: A41.9 Sepsis, unspecified organism (principal); N17.9 Acute kidney failure, unspecified; N39.0 Urinary tract infection, site not specified; I48.91 Unspecified atrial fibrillation; I25.2 Old myocardial infarction; I11.0 Hypertensive heart disease with heart failure; E66.9 Obesity, unspecified; I50.9 Heart failure, unspecified; K21.9 Gastro-esophageal reflux disease without esophagitis; M10.9 Gout, unspecified; E11.65 Type 2 diabetes mellitus with hyperglycemia; Z98.49 Cataract extraction status, unspecified eye; Z87.891 Personal history of nicotine dependence; Z79.01 Long term (current) use of anticoagulants; Z86.73 Personal history of transient ischemic attack (TIA), and cerebral infarction without residual deficits; Z86.74 Personal history of sudden cardiac arrest; Z68.38 Body mass index [BMI] 38.0-38.9, adult; Z79.899 Other long term (current) drug therapy; Z79.84 Long term (current) use of oral hypoglycemic drugs
CPT/HCPCS: 36415; 71046; 80053; 81002; 83605; 83880; 85025; 85610; 87040; 87086; 93005; J0696; J1815; J7030; J7060; 99284; S1016

== ENCOUNTER 2018-10-10 07:13 | Outpatient (CLI) | payer MEDICARE, MEDICAID | END 2018-10-10 07:15 | LOC: LAB 07:13 | PROVIDERS: ATTEND Internal Medicine Cardiovascular Disease | DX: Z51.81 Encounter for therapeutic drug level monitoring (principal); Z79.01 Long term (current) use of anticoagulants | CPT/HCPCS: 36415; 85610 ==

== ENCOUNTER 2018-11-02 18:25 | Outpatient (CLI) | payer MEDICARE, OTHER | END 2018-11-02 18:27 | LOC: LABRHC 18:25 | PROVIDERS: ATTEND Family Medicine | DX: N39.0 Urinary tract infection, site not specified (principal) | CPT/HCPCS: 87086; 87186 ==

== ENCOUNTER 2018-11-14 07:14 | Outpatient (CLI) | payer MEDICARE, MEDICAID | END 2018-11-14 07:16 | LOC: LAB 07:14 | PROVIDERS: ATTEND Internal Medicine Cardiovascular Disease | DX: I63.9 Cerebral infarction, unspecified (principal); Z79.01 Long term (current) use of anticoagulants | CPT/HCPCS: 36415; 85610 ==

== ENCOUNTER 2018-12-04 07:13 | Outpatient (CLI) | payer MEDICARE, MEDICAID | END 2018-12-04 07:15 | LOC: LAB 07:13 | PROVIDERS: ATTEND Internal Medicine Cardiovascular Disease | DX: Z79.01 Long term (current) use of anticoagulants (principal); Z51.81 Encounter for therapeutic drug level monitoring; I63.9 Cerebral infarction, unspecified | CPT/HCPCS: 36415; 85610 ==

== ENCOUNTER 2019-01-23 07:14 | Outpatient (CLI) | payer MEDICARE, OTHER | END 2019-01-23 07:19 | LOC: LAB 07:14 | PROVIDERS: ATTEND Internal Medicine Cardiovascular Disease | DX: I63.9 Cerebral infarction, unspecified (principal); Z79.01 Long term (current) use of anticoagulants | CPT/HCPCS: 36415; 85610 ==

== ENCOUNTER 2019-03-28 07:20 | Outpatient (CLI) | payer OTHER | END 2019-03-28 07:25 | LOC: LAB 07:20 | PROVIDERS: ATTEND Internal Medicine Cardiovascular Disease | DX: I63.9 Cerebral infarction, unspecified (principal); Z79.01 Long term (current) use of anticoagulants | CPT/HCPCS: 36415; 85610 ==